=== PATIENT | female | born 1940 | race Caucasian/White ===

== ENCOUNTER → 2016-12-03 | Outpatient (CLI) | payer OTHER ==
[~2016-12-03] MED LIST: AMLO10TA2 PO; CHOL20009 PO; METO25TA62 PO; Prednisone PO; RISP1TAB63 PO; TEMA30CA PO
[2016-12-03 09:33] LABS: Basophils # (auto) 0.1 uL; Basophils % (auto) 2.4 % (0.0-2.0); Eosinophils # (auto) 0.5 uL; Eosinophils % (auto) 8.8 % (0.0-7.0); Hematocrit 41.4 % (36.0-46.0); Hemoglobin 13.3 g/dL (12.2-16.2); Lymphocytes # (auto) 1.5 uL; Lymphocytes % (auto) 27.3 % (10.0-50.0); Mean Corpuscular Hemoglobin 29.9 pg (28.0-32.0); Mean Corpuscular Hgb Conc. 32.2 g/dL (32.0-36.0); Mean Corpuscular Volume 92.8 fL (80.0-100.0); Monocytes # (auto) 0.5 uL; Monocytes % (auto) 9.4 % (0.0-12.0); Neutrophils # (auto) 2.8 uL; Neutrophils % (auto) 52.1 % (37.0-80.0); Platelet Count (auto) 159 10^3/uL (140-450); Red Cell Distribution Width 14.4 % (11.6-16.0); White Blood Cell 5.4 10^3/uL (4.4-10.8)
[2016-12-03 10:03] LABS: Albumin 3.5 g/dL (3.4-5.0); BUN/Creatinine Ratio 28.4; Bilirubin, Total 0.3 mg/dL (0.2-1.0); Calcium 8.9 mg/dL (8.5-10.1); Potassium 3.9 mmol/L (3.5-5.1); Total Protein 7.1 g/dL (6.4-8.2)
[2016-12-03 16:46] LABS: Urine Bilirubin Negative (Negative); Urine Blood Negative /uL (Negative); Urine Ca Oxalate Crystal FEW (None Seen); Urine Color Yellow (Yellow); Urine Glucose Normal (Normal); Urine Ketone Negative (Negative); Urine Mucus FEW (None Seen); Urine RBC 2 /hpf (0 - 4); Urine Squamous Epithelial Cell FEW /hpf (<5); Urine Urobilinogen Normal (Negative)
[2016-12-03 16:58] LABS: Urine Nitrite POSITIVE (Negative)
== END | disposition home or self-care (01) ==
LOC: LAB 07:55
PROVIDERS: ATTEND Internal Medicine
DX: N18.3 Chronic kidney disease, stage 3 (moderate) (principal); E78.00 Pure hypercholesterolemia, unspecified; I10 Essential (primary) hypertension; Z00.00 Encounter for general adult medical examination without abnormal findings
CPT/HCPCS: 36415; 80053; 80061; 81001; 83615; 84443; 85025

== ENCOUNTER → 2018-03-25 | Outpatient (CLI) | payer OTHER ==
[2018-03-25 07:51] LABS: Basophils # (auto) 0 uL; Basophils % (auto) 0.5 % (0.0-2.0); Eosinophils # (auto) 0.3 uL; Hematocrit 42.1 % (36.0-46.0); Hemoglobin 14.2 g/dL (12.2-16.2); Lymphocytes # (auto) 1.5 uL; Lymphocytes % (auto) 30.7 % (10.0-50.0); Mean Corpuscular Hemoglobin 31.6 pg (28.0-32.0); Mean Corpuscular Hgb Conc. 33.8 g/dL (32.0-36.0); Mean Corpuscular Volume 93.6 fL (80.0-100.0); Monocytes # (auto) 0.6 uL; Monocytes % (auto) 11.3 % (0.0-12.0); Neutrophils # (auto) 2.6 uL; Neutrophils % (auto) 51.5 % (37.0-80.0); Nucleated Red Blood Cells % 0.1 %; Platelet Count (auto) 171 10^3/uL (140-450); Red Cell Distribution Width 14.1 % (11.8-14.3)
[2018-03-25 08:15] LABS: Albumin 3.6 g/dL (3.4-5.0); Bilirubin, Total 0.5 mg/dL (0.2-1.0); CRP High Sensitivity 0.43 mg/dL (< 0.3); Calcium 9.1 mg/dL (8.5-10.1); Potassium 3.8 mmol/L (3.5-5.1); Total Protein 7.3 g/dL (6.4-8.2)
== END | disposition home or self-care (01) ==
LOC: LAB 07:02
PROVIDERS: ATTEND Physician Assistant
DX: E78.00 Pure hypercholesterolemia, unspecified (principal); M06.9 Rheumatoid arthritis, unspecified; J44.9 Chronic obstructive pulmonary disease, unspecified; F31.9 Bipolar disorder, unspecified; G30.1 Alzheimer's disease with late onset; I12.9 Hypertensive chronic kidney disease with stage 1 through stage 4 chronic kidney disease, or unspecified chronic kidney disease; N18.3 Chronic kidney disease, stage 3 (moderate)
CPT/HCPCS: 36415; 80053; 80061; 85025; 85652; 86141; 86431

== ENCOUNTER → 2019-04-19 | Outpatient (CLI) | payer OTHER ==
[~2019-04-19] MED LIST changes: +AMLO10TA12 PO; -AMLO10TA2 PO
[2019-04-19 11:08] LABS: Folate (Folic Acid) 16.13 ng/mL (5.38-24)
== END | disposition home or self-care (01) ==
LOC: LAB 09:22
PROVIDERS: ATTEND Psychiatry & Neurology Neurology
DX: G30.1 Alzheimer's disease with late onset (principal)
CPT/HCPCS: 36415; 82607; 82746; 84443

== ENCOUNTER → 2019-12-22 | Outpatient (CLI) | payer OTHER ==
[~2019-12-22] MED LIST changes: -AMLO10TA12 PO; +AMLO10TA13 PO; -METO25TA62 PO; +METO25TA93 PO
[2019-12-22 09:05] LABS: Basophils # (auto) 0 uL; Basophils % (auto) 0.7 % (0.0-2.0); Eosinophils # (auto) 0.3 uL; Eosinophils % (auto) 6.5 % (0.0-7.0); Hematocrit 41.8 % (36.0-46.0); Hemoglobin 14.1 g/dL (12.2-16.2); Lymphocytes # (auto) 1.2 uL; Lymphocytes % (auto) 28.9 % (10.0-50.0); Mean Corpuscular Hemoglobin 32.4 pg (28.0-32.0); Mean Corpuscular Hgb Conc. 33.8 g/dL (32.0-36.0); Mean Corpuscular Volume 95.9 fL (80.0-100.0); Monocytes # (auto) 0.5 uL; Monocytes % (auto) 11.2 % (0.0-12.0); Neutrophils # (auto) 2.3 uL; Neutrophils % (auto) 52.7 % (37.0-80.0); Nucleated Red Blood Cells % 0.1 %; Platelet Count (auto) 148 10^3/uL (140-450); Red Blood Cells 4.35 10^6/uL (4.0-5.20); Red Cell Distribution Width 13.5 % (11.8-14.3); White Blood Cell 4.3 10^3/uL (4.4-10.8)
[2019-12-22 09:33] LABS: Albumin 3.5 g/dL (3.4-5.0); Calcium 9.2 mg/dL (8.5-10.1)
[2019-12-22 09:40] LABS: BUN/Creatinine Ratio 22.9; Bilirubin, Total 0.5 mg/dL (0.2-1.0); Total Protein 7.2 g/dL (6.4-8.2)
== END | disposition home or self-care (01) ==
LOC: LAB 08:36
PROVIDERS: ATTEND Physician Assistant
DX: J44.9 Chronic obstructive pulmonary disease, unspecified (principal); I12.9 Hypertensive chronic kidney disease with stage 1 through stage 4 chronic kidney disease, or unspecified chronic kidney disease; N18.3 Chronic kidney disease, stage 3 (moderate); G30.1 Alzheimer's disease with late onset
CPT/HCPCS: 36415; 80053; 80061; 85025

== ENCOUNTER 2020-06-11 09:31 | Inpatient (IN) | payer OTHER ==
[~2020-06-11] VITALS: Ht 162.6 cm; Wt 33.6 kg
[2020-06-11] MEDS ORDERED: SODIUM CHLORIDE 0.9% 500 ML IV ONE (11:38)
[2020-06-11] MEDS ORDERED: SODIUM CHLORIDE 0.9% 1,000 ML IV ONE ×2 (11:38→14:07)
[2020-06-11 12:46] LABS: Basophils # (auto) 0 10 ^3/uL (0-0.2); Basophils % (auto) 0.2 % (0.0-2.0); Eosinophils # (auto) 0 10 ^3/uL (0-0.8); Eosinophils % (auto) 0.1 % (0.0-7.0); Hematocrit 41.7 % (36.0-46.0); Hemoglobin 13.9 g/dL (12.2-16.2); Lymphocytes # (auto) 0.4 10 ^3/uL (0.4-5.4); Lymphocytes % (auto) 4.7 % (10.0-50.0); Mean Corpuscular Hemoglobin 32.6 pg (28.0-32.0); Mean Corpuscular Hgb Conc. 33.4 g/dL (32.0-36.0); Mean Corpuscular Volume 97.4 fL (80.0-100.0); Monocytes % (auto) 10.4 % (0.0-12.0); Neutrophils % (auto) 84.6 % (37.0-80.0); Nucleated Red Blood Cells % 0.1 %; Platelet Count (auto) 147 10^3/uL (140-450); Red Blood Cells 4.28 10^6/uL (4.0-5.20); Red Cell Distribution Width 13.5 % (11.8-14.3); White Blood Cell 9.4 10^3/uL (4.4-10.8)
[2020-06-11 13:03] LABS: Albumin 3.5 g/dL (3.4-5.0); Calcium 9.1 mg/dL (8.5-10.1); Magnesium 2.7 mg/dL (1.6-2.6); Potassium 4.7 mmol/L (3.5-5.1)
[2020-06-11 13:08] LABS: BUN/Creatinine Ratio 19.4; Bilirubin, Total 0.7 mg/dL (0.2-1.0); Total Protein 7.2 g/dL (6.4-8.2)
[2020-06-11] MEDS ORDERED: MORPHINE SULF INJ 2 MG/ML SYRINGE 1ML IV PRN ×2 (14:15→15:30)
[2020-06-11] MEDS ORDERED: ONDANSETRON HCL 4 MG/2 ML VIAL IV ONE (14:15)
[2020-06-11 15:11] LABS: INR 0.99 (0.9-1.15); Partial Thromboplastin Time 25.1 sec (23.0-31.2)
[2020-06-11 15:15] LABS: Urine Amorphous Crystal FEW /hpf (None Seen); Urine Bacteria NONE SEEN /hpf (None Seen); Urine Blood Negative /uL (Negative); Urine Specific Gravity 1.011 (1.001-1.035); Urine WBC <1 /hpf (0 - 5)
[2020-06-11] MEDS ORDERED: ACETAMINOPHEN 500 MG TAB PO PRN (15:30)
[2020-06-11] MEDS ORDERED: ONDANSETRON HCL 4 MG/2 ML VIAL IV PRN (15:30)
[2020-06-11] MEDS ORDERED: LACTULOSE 20Gm/30ML SOLN PO PRN (15:30)
[2020-06-11] MEDS ORDERED: TEMAZEPAM 15 MG CAP PO PRN (15:45)
[2020-06-11] MEDS: SODIUM CHLORIDE 0.9% 1,000 ML IV SCH (16:07)
[2020-06-11] MEDS: risperiDONE 1 MG TAB PO SCH (22:47)
[2020-06-12] MEDS: SODIUM CHLORIDE 0.9% 1,000 ML IV SCH (02:37)
[2020-06-12] MEDS ORDERED: TRANEXAMIC ACID 20 ML ONE (08:54)
[2020-06-12] MEDS ORDERED: BUPIVACAINE W/ EPINEPH 0.25% INJ 50ML MDV ONE (08:54)
[2020-06-12] MEDS ORDERED: TETRACAINE 1% INJ 2 ML VIAL IJ ONE (08:55)
[2020-06-12] MEDS ORDERED: VANCOMYCIN HCL 1000 MG VL ONE (08:57)
[2020-06-12] MEDS ORDERED: KETOROLAC TROMETH 30 MG/ML 1ML VIAL ONE (08:57)
[2020-06-12] MEDS: predniSONE 5 MG TAB PO SCH (10:48)
[2020-06-12] MEDS: METOPROLOL SUCCINATE XL 50 MG TAB PO SCH (10:48)
[2020-06-12] MEDS: risperiDONE 1 MG TAB PO SCH ×2 (10:48→22:15)
[2020-06-12] MEDS ORDERED: ceFAZolin 1GM/50ML 50 ML IV ONE (11:34)
[2020-06-12] MEDS ORDERED: fentaNYL CITRATE 100 MCG/2 ML VL ONE (12:03)
[2020-06-12] MEDS ORDERED: MIDAZOLAM HCL 1MG/1ML-2 ML VIAL ONE (12:03)
[2020-06-12] MEDS ORDERED: MIDAZOLAM HCL 1MG/1ML-2 ML VIAL IV PRN (13:00)
[2020-06-12] MEDS ORDERED: ONDANSETRON HCL 4 MG/2 ML VIAL IV PRN (13:00)
[2020-06-12] MEDS ORDERED: LABETALOL HCL 5 MG/ML 4ML SYRINGE IV PRN (13:00)
[2020-06-12] MEDS ORDERED: ePHEDrine SULFATE 50 MG/ML AMP IV PRN (13:00)
[2020-06-12] MEDS ORDERED: MORPHINE SULFATE 4 MG/ML SYR/VIAL IV PRN (13:00)
[2020-06-12] MEDS ORDERED: MORPHINE SULF(PF) 0.5MG/ML 10ML VIAL ONE (13:02)
[2020-06-12] MEDS ORDERED: PROPOFOL 10 MG/ML 20 ML IV ONE (13:02)
[2020-06-12] MEDS ORDERED: DexAMETHasone SOD PHOS 10MG/1ML VIAL INJ ONE (13:02)
[2020-06-12] MEDS ORDERED: PHENYLEPHRINE HCL 10 MG/ML VL IV ONE (13:19)
--- NOTE | 2020-06-12 16:20 | NUR ---
Telemetry admit from PACU ALEXANDRIA SLATER admitted to Telemetry unit after SBAR received. Patient oriented to Glenda wood RN, unit, room, bed, and unit policies regarding patient care and visiting hours. Patient now on continuous telemetry monitoring weighed by bed scale. Instructed patient on POC, fall and pressure ulcer prevention and to call for assistance as needed. Patient verbalized understanding although frequent reorientation is needed. Patient is A&Oxself. Respirations even and unlabored, no distress noted. Fall precautions in place with call light within reach and bed alarm on for safety. Wound vac in place to the left hip. Dressing is clean, dry and intact.
[2020-06-12] MEDS: ceFAZolin 1GM/50ML 50 ML IV SCH ×2 (16:46→22:10)
[2020-06-12] MEDS: Ensure HIGH Protein Chocolate 8oz Bottle PO SCH (18:00)
--- NOTE | 2020-06-12 18:00 | NUR ---
Called patient's to obtain admission assessment information
[2020-06-12] MEDS: LACTATED RINGER'S 1,000 ML IV SCH (18:02)
--- NOTE | 2020-06-12 18:48 | NUR ---
Closing note Patient resting in bed with even and unlabored respirations on room air, no distress noted. Fall precautions in place with speciality call light within reach and bed alarm on for safety. Wound vac in place to the left hip. SCD in place to the RLE per MD order.
--- NOTE | 2020-06-12 19:28 | NUR ---
Care endorsed to LAYA Weaver.
--- NOTE | 2020-06-12 19:30 | NUR ---
Opening Shift Note Assumed care of patient, awake and alert. No S/S of distress/SOB or pain. Pt confused, alert and oriented x1. Pt unaware of location, situation or time. Pt does not complain of pain at this time. Pt arm retracted against body, able to extend arms upon request. Pt hands severely contracted and unable to open palms. Abduction pillow present between legs, wound vac placed over incision site. Safety measures in place, bed placed in lowest position, bed rails raised x2, specialty call light in reach, bed alarm on for safety. Instructed on POC and to call for assist PRN, will continue to monitor for changes Q1hr and PRN.
[2020-06-12 22:00] VITALS: BP 104/55
[2020-06-12] MEDS: cefTRIAXone 1GM/50ML D5W 50 ML IV SCH (22:10)
[2020-06-13] MEDS: LACTATED RINGER'S 1,000 ML IV SCH (00:15)
[2020-06-13 06:00] VITALS: BP 153/56
[2020-06-13 06:13] LABS: Hematocrit 31.9 % (36.0-46.0)
[2020-06-13] MEDS: ceFAZolin 1GM/50ML 50 ML IV SCH (06:14)
[2020-06-13] MEDS ORDERED: ceFAZolin 1GM/50ML 50 ML IV SCH (06:15)
[2020-06-13 07:37] LABS: Albumin 2.2 g/dL (3.4-5.0); Calcium 8.1 mg/dL (8.5-10.1); Potassium 3.4 mmol/L (3.5-5.1)
[2020-06-13 07:39] LABS: BUN/Creatinine Ratio 43.1
[2020-06-13 07:41] LABS: Bilirubin, Total 0.3 mg/dL (0.2-1.0); Total Protein 5.2 g/dL (6.4-8.2)
--- NOTE | 2020-06-13 08:00 | NUR ---
Morning note Patient resting in bed with eyes closed; respirations even and unlabored, no distress noted. Fall precautions in place with call light within reach; bed alarm on for safety. Wound vac in place to the left hip. Dressing is clean, dry and intact.
[2020-06-13 09:00] VITALS: BP 128/70
[2020-06-13] MEDS: cefTRIAXone 1GM/50ML D5W 50 ML IV SCH (09:19)
[2020-06-13] MEDS: predniSONE 5 MG TAB PO SCH (09:21)
[2020-06-13] MEDS: METOPROLOL SUCCINATE XL 50 MG TAB PO SCH (09:21)
[2020-06-13] MEDS: risperiDONE 1 MG TAB PO SCH (09:21)
[2020-06-13] MEDS: Ensure HIGH Protein Chocolate 8oz Bottle PO SCH ×2 (09:30→12:00)
--- NOTE | 2020-06-13 09:42 | NUR ---
MD at bedside - Dr. Short; notified MD of potassium level MD verbalized understanding. Order received and read back to verify.
[2020-06-13] MEDS: traMADol HCL 50 MG TAB PO PRN ×2 (09:53→15:38)
[2020-06-13] MEDS ORDERED: POTASSIUM EFFERVESENT TAB 25 MEQ PO ONE (10:00)
[2020-06-13] MEDS ORDERED: ENOXAPARIN SOD 30 MG/0.3 ML SYRINGE SC SCH (10:00)
--- NOTE | 2020-06-13 10:00 | NUR ---
Patient transferred to chair at bedside with maximum assistance from MAYLIN Christopher. Call light within reach.
--- NOTE | 2020-06-13 10:53 | NUR ---
Patient resting in bed with eyes closed Respirations even and unlabored, no distress noted. Call light within reach. Bed alarm on for safety.
[2020-06-13 13:00] VITALS: BP 106/53
--- NOTE | 2020-06-13 13:00 | NUR ---
RE: Gunter catheter & Discharge Gunter catheter to remain in place on discharge per Dr. Muhammad.
--- NOTE | 2020-06-13 13:32 | NUR ---
assessment Patient is a 79 year old female who is confused. Per patients Moustapha prior to admission patient lived home with him and functioned with his assistance. Per Moustapha patient will return home with him on discharge. I informed Moustapha patient has a consult for hospice eval. Per Moustapha he agrees with hospice and wants to speak with [facility] Dr Short recommended. I have offered Moustapha other discharge options such as home health for PT, SNF placement, and private pay caregivers. Moustapha wants to speak with hospice. MD order has been sent to [facility]. Ayanna with [facility] has met with Moustapha and he has signed consents. Equipment has been ordered. [facility] transportation to transport patient at 4pm today post discharge. Glenda ASIF has been notified. Moustapha verbalized understanding and agreed to discharge plan home on hospice. Addendum: 06/13/20 at 1440 by Radha RICHARDS Amended: Links added.
--- NOTE | 2020-06-13 14:41 | NUR ---
re-assessment Patient also has [facility] days per [facility]. Addendum: 06/13/20 at 1441 by Radha RICHARDS Amended: Links added.
--- NOTE | 2020-06-13 14:45 | NUR ---
RE: Wound vac & Discharge Wound vac to remain in place per Dr. Short. Dr. Muhammad to discuss wound vac with Dr. Michael.
--- NOTE | 2020-06-13 15:14 | NUR ---
Discharge education provided to patient's , Taz, via telephone. Questions and concerns addressed.
--- NOTE | 2020-06-13 15:15 | NUR ---
Est energy needs [id number] kcal (30-33 kcal/kg IBW 54.5kg) Est protein needs 55-65g (1-1.2g/kg IBW 54.5kg)) Will reasshu cooley. Addendum: 06/13/20 at [address] Amended: Links added.
[2020-06-13 16:31] VITALS: BP 134/76
--- NOTE | 2020-06-13 16:57 | NUR ---
[facility] arrived to bedside Patient transferred to [facility] with no complications. Wound vac in place to the left hip. Dressing in place is clean, dry and intact with no leaking noted. Pedal pulses present. Skin color and temperature WNL. Patient is A&O to name only. Respirations even and unlabored, no distress noted. Gunter catheter in place per MD order. (2) IV's removed with aseptic technique, catheters intact. Dressings applied. Patient tolerated well, no trauma to sites. Telemonitor removed and returned. Patient unable to sign discharge paperwork due to severe weakness in bilateral hands d/t RA. Patient did not have personal belongings at bedside. Patient's discharge paperwork given to transport crew.
== END 2020-06-13 17:00 | disposition hospice, home (50) | DRG 470 ==
LOC: ER 09:31 → EDBD 09:31 → OVERFLOW 09:32 → WEST WING 06-12 16:23 → TELE-WESTW 06-12 16:28
PROVIDERS: ADMIT Internal Medicine; ATTEND Internal Medicine
PROC: 0SRS0J9 Replacement of Left Hip Joint, Femoral Surface with Synthetic Substitute, Cemented, Open Approach (ICD-10-PCS; principal; 2020-06-12 12:10)
DX: S72.002A Fracture of unspecified part of neck of left femur, initial encounter for closed fracture (principal); R64 Cachexia; I50.22 Chronic systolic (congestive) heart failure; Z68.1 Body mass index [BMI] 19.9 or less, adult; E86.0 Dehydration; E78.5 Hyperlipidemia, unspecified; M81.0 Age-related osteoporosis without current pathological fracture; M06.9 Rheumatoid arthritis, unspecified; I11.0 Hypertensive heart disease with heart failure; Z51.5 Encounter for palliative care; R00.0 Tachycardia, unspecified; F03.90 Unspecified dementia, unspecified severity, without behavioral disturbance, psychotic disturbance, mood disturbance, and anxiety; W18.39XA Other fall on same level, initial encounter; Y93.89 Activity, other specified; Y92.098 Other place in other non-institutional residence as the place of occurrence of the external cause; Y99.8 Other external cause status; Z20.828 Contact with and (suspected) exposure to other viral communicable diseases
CPT/HCPCS: 36415; 71045; 72170; 73501; 73700; 80053; 81001; 83735; 84443; 85014; 85018; 85025; 85610; 85730; 86850; 86900; 86901; 93005; 93306; 96360; A4565; G0378; J0690; J0696; J1100; J1885; J2250; J2704